=== PATIENT | male | born 1990 | race African-American/Black ===

== ENCOUNTER 2017-09-10 09:24 | Emergency (ER) | payer SELFPAY ==
[2017-09-10] MEDS: DIPHTH,PERTUSS(ACELL),TET TOX 0.5 ML DISP.SYRIN. VAX IM (10:24)
== END 2017-09-10 10:27 | disposition home or self-care (01) ==
LOC: ER 09:24
DX: S80.212A Abrasion, left knee, initial encounter (principal); S50.312A Abrasion of left elbow, initial encounter; S50.311A Abrasion of right elbow, initial encounter; W18.30XA Fall on same level, unspecified, initial encounter; Y93.02 Activity, running; Y92.89 Other specified places as the place of occurrence of the external cause; Y99.8 Other external cause status
CPT/HCPCS: 90471; 90715; 99283